=== PATIENT | male | born 1960 | race Caucasian/White ===

== ENCOUNTER 2019-08-13 02:48 | Inpatient (IN) | payer SELFPAY ==
[2019-08-13] MEDS ORDERED: Nitroglycerin 0.4 MG TAB (25 Tab Bottle) SL PRN (03:54)
[2019-08-13] MEDS ORDERED: Heparin 25,000 units/D5W 500 ML IVPB SCH (04:00)
[2019-08-13] MEDS ORDERED: Heparin 10,000 UNITS/ 10 ML VIAL SLOW IVP SCH (04:00)
[2019-08-13] MEDS ORDERED: Morphine 2 MG/ML SYRINGE SLOW IVP PRN (04:16)
--- NOTE | 2019-08-13 04:55 | HP ---
CHIEF COMPLAINT: Chest pain. HISTORY OF PRESENT ILLNESS: Mr. Rasmussen is a 58-year-old male with a past medical history of GERD, presents to [facility] with chest pain that has been going on and off for the past 2 weeks. Last evening, the patient had the pain severe enough to tell his , and she gave him nitroglycerin and aspirin. He reports dizziness and weakness for the past 3 weeks, including episodes where he thought he might pass out. On workup in the emergency room, the patient had an elevated troponin, more than 1. The patient was bradycardic with heart rate in the 40s. The patient transferred to this facility for further management and Cardiology consultation. In the emergency room, the patient received aspirin and Lovenox 1 mg/kg. PAST MEDICAL HISTORY: GERD. PAST SURGICAL HISTORY: No surgical history. SOCIAL HISTORY: He currently smokes about a pack a day. FAMILY HISTORY: Father had a heart attack in his 50s. ALLERGIES: NO KNOWN ALLERGIES. HOME MEDICATIONS: Please see home medication reconciliation form for updated medications. REVIEW OF SYSTEMS: A review of 14 systems is negative, except what is mentioned in the history of present illness. PHYSICAL EXAMINATION: VITAL SIGNS: Blood pressure is 106/66, pulse is 48, respiratory rate is 14, and temperature is 97.5. HEAD AND NECK: Normocephalic and atraumatic. Neck is supple. No JVD. CHEST: Fair bilateral air entry. HEART: S1 and S2. Regular. ABDOMEN: Soft and nontender. Bowel sounds are present. NEUROLOGIC: Awake, alert, and oriented x3. PSYCHIATRIC: Normal mood. EXTREMITIES: No clubbing or cyanosis. GENITOURINARY: No suprapubic tenderness. No flank tenderness. LABORATORIES: WBC 8.0, hemoglobin 13.9, and platelets 216. Sodium 140, potassium 3.3, BUN 13, and creatinine 1.1. Troponin is 1.13. ASSESSMENT: 1. [id number] myocardial infarction. 2. Hypokalemia. 3. Family history of coronary artery disease. 4. Cigarette smoker. PLAN: 1. Admit. 2. Telemetry monitoring. 3. Serial troponins. 4. The patient was given Lovenox in the ED 1 mg/kg, further anticoagulation as per Cardiology. 5. Keep the patient n.p.o. for now. 6. Consult Cardiology in the a.m. for evaluation and further recommendations. 7. Reconcile home medications. 8. DVT prophylaxis as appropriate. 9. Expected length of stay is 2 midnights or more. Job ID: [id number]
[2019-08-13 05:00] LABS: Hemoglobin 13.7 g/dL (14.0-18.0); Platelet Count 209 thou/uL (130-400)
[2019-08-13 05:27] LABS: Troponin I 3.713 ng/mL (< 0.028)
[2019-08-13 06:41] VITALS: BMI 31.3
[2019-08-13 07:54] LABS: Troponin I 7.481 ng/mL (< 0.028)
[2019-08-13] MEDS ORDERED: Atropine Sulfate 1 mg/1 ml Vial IVP PRN (07:58)
[2019-08-13] MEDS ORDERED: Sodium Chloride 0.9% 500 ML IV SCH (08:00)
[2019-08-13] MEDS ORDERED: Sodium Chloride 0.9% 1,000 ML IV SCH ×2 (08:00→13:15)
[2019-08-13 08:55] LABS: Hemoglobin A1c 5.6 % (4.0-6.0)
[2019-08-13] MEDS ORDERED: Enoxaparin Sodium 80 MG/0.8 ML SYRINGE SC SCH (09:00)
[2019-08-13] MEDS ORDERED: Aspirin 325 mg Enteric Coated Tablet PO SCH (09:00)
[2019-08-13] MEDS ORDERED: Fentanyl 100 MCG/2 ML VIAL ONE (09:01)
[2019-08-13] MEDS ORDERED: Midazolam HCl 2 mg/2 ml Vial ONE (09:02)
[2019-08-13 09:09] LABS: Anion Gap 11 mmol/L (10-20); BUN (Urea Nitrogen) 13 mg/dL (8.4-25.7); Calc. Creatinine Clearance 126 mL/min (70-130); Calcium 8.8 mg/dL (7.8-10.44); Carbon Dioxide 23 mmol/L (22-29); Cardiac Risk 5.1 (Less than 4.5); Chloride 109 mmol/L (98-107); Cholesterol 190 mg/dl (< 200 Desired); Estimated GFR-MDRD 85; Glucose 113 mg/dL (70-105); HDL Cholesterol 37 mg/dL (>60 Neg Risk); LDL Cholesterol, Calculated 126 mg/dL; Magnesium 2.1 mg/dL (1.6-2.6); Potassium 3.6 mmol/L (3.5-5.1); Sodium 139 mmol/L (136-145); Triglycerides 134 mg/dL (Less than 150)
[2019-08-13] MEDS ORDERED: Clopidogrel Bisulfate 300 MG TAB ONE (09:12)
[2019-08-13] MEDS ORDERED: Enoxaparin Sodium 30 MG/0.3 ML SYRINGE ONE (09:13)
[2019-08-13] MEDS ORDERED: Nitroglycerin 100MG/250ML BOT 250 ML ONE (09:14)
[2019-08-13] MEDS ORDERED: Adenosine 6 MG/2 ML VIAL ONE (09:14)
[2019-08-13] MEDS ORDERED: Verapamil 5 MG/2 ML VIAL ONE (09:14)
[2019-08-13] MEDS ORDERED: Nitroglycerin 50 MG/250 ML BOT 250 ML ONE (09:38)
[2019-08-13] MEDS ORDERED: Iopamidol 370 76% 100 ML VIAL ONE (09:57)
[2019-08-13] MEDS ORDERED: Iopamidol 370 76% 50 ML VIAL FS ONE (09:57)
[2019-08-13] MEDS ORDERED: Morphine 2 MG/ML SYRINGE ONE (11:48)
--- NOTE | 2019-08-13 13:50 | CON ---
DATE OF CONSULTATION: 08/13/2019 REASON FOR CONSULTATION: [id number] WA. HISTORY OF PRESENT ILLNESS: Mr. Rasmussen is a 58-year-old gentleman, who recently presented with acute onset chest pain. It began at 1:30 in the morning. He presented to the emergency room with the above. He was given one dose of Lovenox. He was placed on telemetry monitoring. I was called at 8 o'clock this morning, because the patient continued to have pain with elevated troponin of 7.0. The patient does have a previous history of tobacco abuse. PAST MEDICAL HISTORY: Acid reflux. SOCIAL HISTORY: As above. He is currently . FAMILY HISTORY: Positive for WA. ALLERGIES: NONE. MEDICATIONS: None. REVIEW OF SYSTEMS: A 10-point review of systems is reviewed and is as above, otherwise negative. PHYSICAL EXAMINATION: GENERAL: Patient is a pleasant male who is in no acute distress. The patient appears their stated age. VITAL SIGNS: Blood pressure 110/70, pulse 80, respirations 20. NEUROLOGIC: The patient is alert and oriented x3 with no focal neurologic deficits. HEENT: Sclerae without icterus. Mouth has moist mucous membranes with normal pallor. NECK: No JVD. Carotid upstroke brisk. No bruits bilaterally. LUNGS: Clear to auscultation with unlabored respirations. BACK: No scoliosis or kyphosis. CARDIAC: Regular rate and rhythm with normal S1 and S2. No S3 or S4 noted. No significant rubs, murmurs, thrills, or gallops noted throughout the precordium. PMI is not displaced. There is no parasternal heave. ABDOMEN: Soft, nontender, nondistended. No peritoneal signs present. No hepatosplenomegaly. No abnormal striae. EXTREMITIES: 2+ femoral and 2+ dorsalis pedis pulses. No cyanosis, clubbing, or edema. SKIN: No gross abnormalities. PERTINENT LABORATORY DATA: Hemoglobin 13.7. Creatinine 0.91. Troponin 7.48. BNP of 114. EKG, normal sinus rhythm with Q-waves noted inferiorly. IMPRESSION: 1. Elevated troponin. 2. Unstable angina. 3. Tobacco abuse. RECOMMENDATIONS: Given Mr. Mchughs troponin is positive with continued pain and episodes of bradycardia with a 4-second pause, I am concerned about stenosis or occlusion of the right coronary artery. Given continued pain, I would recommend urgent coronary angiography plus PCI. I discussed the procedure in full detail with Mr. Rasmussen. The risks of the procedure were also discussed. The risks of the procedure include but are not limited to the following: , stroke, [place], need for emergency surgery, loss of limb, bleeding, and infection, as well as a reaction to the dye causing kidney failure and needing long-term dialysis. I also discussed the risks of PCI to include all of the above including coronary dissection and perforation in addition to acute stent thrombosis and restenosis. All questions about the procedure were answered. Given the above, the patient agreed to proceed with coronary angiography and possible PCI. Also I discussed drug-coated versus nondrug-coated stent placement. There were no complications proceed if needed. Further recommendations pending the above. Job ID: [id number]
[2019-08-13] MEDS ORDERED: Nitroglycerin 50 MG/250 ML BOT 250 ML IVPB SCH (15:15)
--- NOTE | 2019-08-13 17:40 | EKG ---
Test Reason : C/O CHEST PAIN Blood Pressure : / mmHG Vent. Rate : 040 BPM Atrial Rate : 040 BPM P-R Int : 210 ms QRS Dur : 088 ms QT Int : 522 ms P-R-T Axes : 066 060 165 degrees QTc Int : 425 ms Marked sinus bradycardia with marked sinus arrhythmia with 1st degree A-V block Possible Inferior infarct (cited on or before 13-AUG-2019) Abnormal ECG When compared with ECG of 13-AUG-2019 02:58, (Unconfirmed) No significant change was found Confirmed by DR. Shiraz RASCON (3) on 08/13/2019 5:39:58 PM Referred By: LEE Confirmed By:DR. Shiraz RASCON
--- NOTE | 2019-08-13 17:42 | EKG ---
Test Reason : POST STENT-RCA Blood Pressure : / mmHG Vent. Rate : 050 BPM Atrial Rate : 051 BPM P-R Int : 000 ms QRS Dur : 158 ms QT Int : 584 ms P-R-T Axes : 000 088 -67 degrees QTc Int : 532 ms Electronic ventricular pacemaker When compared with ECG of 13-AUG-2019 08:17, (Unconfirmed) Electronic ventricular pacemaker has replaced Sinus rhythm Confirmed by DR. Shiraz RASCON (3) on 08/13/2019 5:41:37 PM Referred By: SHIRAZ Confirmed By:DR. Shiraz RASCON
[2019-08-13] MEDS: Atorvastatin Calcium 40 MG TAB PO SCH (20:23)
[2019-08-14 03:48] LABS: #Basophils 0.1 thou/uL (0.0-0.2); #Eosinphils 0.1 thou/uL (0.0-0.7); #Lymphocytes 2.3 thou/uL (1.20-3.40); #Monocytes 0.8 thou/uL (0.11-0.59); #Neutrophils 4.9 thou/uL (1.40-6.50); %Basophils 0.9 % (0.0-1.0); %Eosinophils 1.1 % (0.0-10.0); %Lymphocytes 28.2 % (21.0-51.0); %Monocytes 9.7 % (0.0-10.0); %Neutrophils 60.1 % (42.0-75.0); Hemoglobin 13.1 g/dL (14.0-18.0); Mean Corpuscular HGB CONC 32.8 g/dL (32.0-36.0); Mean Corpuscular Hemoglobin 31.7 pg (27.0-31.0); Mean Corpuscular Volume 96.6 fL (78.0-98.0); Mean Platelet Volume 8.7 fL (7.4-10.4); Platelet Count 170 thou/uL (130-400); RBC Distribution Width 12.8 % (11.5-14.5); Red Blood Cell (RBC) Count 4.13 mill/uL (4.70-6.10); White Blood Cell (WBC) Count 8.1 thou/uL (4.8-10.8)
[2019-08-14 04:06] LABS: ALT (SGPT) 32 U/L (8-55); AST (SGOT) 107 U/L (5-34); Albumin 3.4 g/dL (3.5-5.0); Alkaline Phosphatase 65 U/L (40-110); Anion Gap 10 mmol/L (10-20); BUN (Urea Nitrogen) 11 mg/dL (8.4-25.7); Bilirubin, Total 0.7 mg/dL (0.2-1.2); Calc. Creatinine Clearance 141 mL/min (70-130); Calcium 8.3 mg/dL (7.8-10.44); Carbon Dioxide 21 mmol/L (22-29); Chloride 110 mmol/L (98-107); Estimated GFR-MDRD Greater than 90; Globulin 2.3 g/dL (2.4-3.5); Glucose 104 mg/dL (70-105); Magnesium 1.9 mg/dL (1.6-2.6); Potassium 3.4 mmol/L (3.5-5.1); Protein, Total 5.7 g/dL (6.0-8.3); Sodium 138 mmol/L (136-145)
[2019-08-14] MEDS: Clopidogrel Bisulfate 75 MG TAB PO SCH (08:48)
[2019-08-14] MEDS: Aspirin Chewable 81 MG TAB PO SCH (08:48)
[2019-08-14] MEDS: Potassium Chloride 20 MEQ TAB PO SCH ×2 (08:48→16:51)
--- NOTE | 2019-08-14 09:57 | CON ---
DATE OF CONSULTATION: HISTORY OF PRESENT ILLNESS: A 58-year-old gentleman who is status post emergency cardiac cath with intervention. Please review the copy coordinator's note. The patient is a pack-a-day smoker for 30 years without prior history of TB, pneumonia, or bronchial asthma. In fact, he tells me this is the first time in the hospital. He is bradycardic. Emergency cardiac cath revealed occlusion of his RCA. He had a stent placed. Most days, he has no issues, no shortness of breath, coughing, or wheezing. PAST MEDICAL HISTORY: High cholesterol. PREVIOUS SURGERIES: None. CARDIAC MEDICATION: Prilosec. SOCIAL HISTORY: Alcohol, none. Tobacco, pack a day. Social history otherwise unremarkable. FAMILY HISTORY: Unremarkable. REVIEW OF SYSTEMS: Ten-point negative. He may snore. PHYSICAL EXAMINATION: VITAL SIGNS: His ICU pulse is 63. He has a temporary pacemaker. Blood pressure 125/60, respiratory rate 18, pulse 80, afebrile. GENERAL: No distress. CHEST: Decreased breath sounds. No wheezing. CARDIAC: Normal S1 and S2. ABDOMEN: No masses. DIAGNOSTIC STUDIES: Chest x-ray is normal. Thyroid function is normal. BNP is normal. H and H are stable. Lytes are normal. IMPRESSION: Acute coronary syndrome, emergency cardiac cath, significant bradycardia with a temporary pacemaker. Continue supportive care. We will follow while in the ICU. He was advised to refrain from smoking. Consultation note, 70 minutes, 50% direct patient care. Job ID: [id number]
--- NOTE | 2019-08-14 13:36 | PRG ---
DATE OF SERVICE: 08/14/2019 SUBJECTIVE: Mr. Rasmussen is doing much better. No current complaints. No chest pain or pressure noted. The temporary pacemaker is stable. He is no longer pacer dependent as he was yesterday morning and afternoon. OBJECTIVE: VITAL SIGNS: Blood pressure 120/76, pulse 64, temperature afebrile. LUNGS: Clear to auscultation. HEART: Regular rate and rhythm. ABDOMEN: Soft, nontender, and nondistended. EXTREMITIES: No edema. IMPRESSION: 1. Acute myocardial infarction. 2. Bradycardia secondary to recent myocardial infarction. 3. Tobacco abuse. RECOMMENDATIONS: 1. Mr. Rasmussen is currently doing well. We will turn off pacemaker for now and discontinue this p.m. if stable. 2. 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 3. Hold beta-favian therapy given recent bradycardia. 4. Continue aspirin and atorvastatin in addition to Plavix and pantoprazole. 5. Plan is to keep in the ICU overnight and transfer to a regular room tomorrow if stable. Job ID: [id number]
--- NOTE | 2019-08-14 14:04 | EKG ---
Test Reason : Blood Pressure : / mmHG Vent. Rate : 052 BPM Atrial Rate : 052 BPM P-R Int : 166 ms QRS Dur : 088 ms QT Int : 474 ms P-R-T Axes : 070 051 -70 degrees QTc Int : 440 ms Sinus bradycardia Inferior infarct , age undetermined Abnormal ECG When compared with ECG of 13-AUG-2019 10:43, Sinus rhythm has replaced Electronic ventricular pacemaker Confirmed by DR. Shiraz RASCON (3) on 08/14/2019 2:03:44 PM Referred By: SHIRAZ Confirmed By:DR. Shiraz RASCON
--- NOTE | 2019-08-14 18:00 | PDOC.HOSPP ---
- Subjective Encounter Date: 08/14/19 Encounter Time: 09:30 Subjective: Patient seen and examined for NSTEMI. No CP. On NTG drip. No new complaints. No overnight events - Objective Vital Signs & Weight: Vital Signs (12 hours) Temp Pulse Resp BP Pulse Ox 08/14/19 16:00 67 22 H 153/82 H 08/14/19 12:00 62 19 142/75 H 08/14/19 08:00 98.2 F 08/14/19 07:58 97 Weight Weight 224 lb 6.4 oz Most Recent Monitor Data Heart Rate from ECG 60 NIBP 142/83 NIBP BP-Mean 102 Respiration from ECG 16 SpO2 98 I&O: 08/13/19 08/14/19 08/15/19 06:59 06:59 06:59 Intake Total 2240.7 513.2 Output Total 1375 1145 Balance 865.7 -631.8 Result Diagrams: 08/14/19 03:05 08/14/19 03:05 EKG Reviewed by me: Yes (Tele SR) Hospitalist ROS - Review of Systems Respiratory: denies: cough, dry, shortness of breath, hemoptysis, SOB with excertion, pleuritic pain, sputum, wheezing, other Cardiovascular: denies: chest pain, palpitations, orthopnea, paroxysmal noc. dyspnea, edema, light headedness, other - Medication Medications: Active Medications Generic Name Dose Route Start Last Admin Trade Name Freq PRN Reason Stop Dose Admin Aspirin 81 mg 08/14/19 09:00 08/14/19 08:48 Aspirin Chewable PO 81 mg DAILY DONALD Administration Atorvastatin Calcium 80 mg 08/13/19 21:00 08/13/19 20:23 Lipitor PO 80 mg HS DONALD Administration Clopidogrel Bisulfate 75 mg 08/14/19 09:00 08/14/19 08:48 Plavix PO 75 mg DAILY DONALD Administration Morphine Sulfate 2 mg 08/13/19 04:16 08/13/19 15:33 Morphine SLOW IVP 2 mg Q4H PRN Administration Moderate to Severe Pain (6-10) Pantoprazole Sodium 40 mg 08/13/19 21:00 08/13/19 20:23 Protonix PO 40 mg HS DONALD Administration Sodium Chloride 10 ml 08/13/19 09:00 08/14/19 09:11 Flush - Normal Saline IVF 10 ml Q12HR DONALD Administration - Exam General Appearance: NAD Neck: supple, no JVD Heart: RRR, no gallops, no rubs, normal peripheral pulses Respiratory: CTAB, no wheezes, no rales, no ronchi Gastrointestinal: soft, non-tender, non-distended, normal bowel sounds, no guarding, no rigidity Extremities: no cyanosis, no clubbing, no edema Neurological: no new deficit Psychiatric: normal affect, A&O x 3 Hosp A/P - Plan DVT proph w/SCDs NSTEMI s/p RCA stent Bradycardia with sinus pauses due to above Tob dep Obesity BMI 31.3 GERD PLAN: Cont ASA/Plavix Cont NTG drip Temporary pacer turned off Counselled to quit smoking AM labs No Betablockers due to bradycardia
[2019-08-14] MEDS: Atorvastatin Calcium 40 MG TAB PO SCH (21:02)
[2019-08-15 03:45] LABS: #Eosinphils 0.1 thou/uL (0.0-0.7); #Lymphocytes 2.3 thou/uL (1.20-3.40); #Monocytes 0.8 thou/uL (0.11-0.59); #Neutrophils 5.6 thou/uL (1.40-6.50); %Basophils 0.4 % (0.0-1.0); %Eosinophils 1.7 % (0.0-10.0); %Lymphocytes 25.7 % (21.0-51.0); %Monocytes 9.3 % (0.0-10.0); Mean Corpuscular Hemoglobin 32.5 pg (27.0-31.0); Mean Corpuscular Volume 95.6 fL (78.0-98.0); Mean Platelet Volume 8.6 fL (7.4-10.4); Platelet Count 188 thou/uL (130-400); RBC Distribution Width 12.4 % (11.5-14.5); White Blood Cell (WBC) Count 8.9 thou/uL (4.8-10.8)
[2019-08-15 04:06] LABS: Anion Gap 10 mmol/L (10-20); BUN (Urea Nitrogen) 9 mg/dL (8.4-25.7); Calc. Creatinine Clearance 138 mL/min (70-130); Calcium 8.7 mg/dL (7.8-10.44); Carbon Dioxide 25 mmol/L (22-29); Chloride 108 mmol/L (98-107); Estimated GFR-MDRD Greater than 90; Glucose 96 mg/dL (70-105); Potassium 3.7 mmol/L (3.5-5.1); Sodium 139 mmol/L (136-145)
[2019-08-15] MEDS: Aspirin Chewable 81 MG TAB PO SCH (08:02)
[2019-08-15] MEDS: Clopidogrel Bisulfate 75 MG TAB PO SCH (08:02)
[2019-08-15] MEDS ORDERED: Potassium Chloride 20 MEQ TAB PO SCH (08:45)
--- NOTE | 2019-08-15 15:36 | PRG ---
DATE OF SERVICE: 08/15/2019 SUBJECTIVE: Mr. Rasmussen is doing very well. His heart rate is stable overnight after removing the temporary pacemaker. No current complaints. OBJECTIVE: VITAL SIGNS: Blood pressure 127/81, pulse temperature 97.8. LUNGS: Clear to auscultation. HEART: Regular rate and rhythm. ABDOMEN: Soft, nontender, nondistended. EXTREMITIES: No edema. PERTINENT LABORATORY DATA: Hemoglobin 14. IMPRESSION: 1. Non-Q-wave myocardial infarction. 2. Occluded right coronary artery. 3. Tobacco abuse. RECOMMENDATIONS: 1. Continue aspirin 81 q.a.m. 2. Continue atorvastatin 80 at bedtime. 3. Continue Plavix 75 daily. 4. Avoid beta-favian therapy until the outpatient setting due to recent bradycardia. 5. Cessation of all tobacco products. 6. Okay from my standpoint to discharge home in a.m. The patient is from the [place], [place] area, and recommend he follow up with a sheet heater in the region. Job ID: [id number]
--- NOTE | 2019-08-15 19:30 | PDOC.HOSPP ---
- Subjective Encounter Date: 08/15/19 Encounter Time: 17:00 Subjective: Patient seen and examined for NSTEMI. No new CP/Palpitations. No new complaints. No overnight events - Objective Vital Signs & Weight: Vital Signs (12 hours) Temp Pulse Pulse Pulse Resp BP BP 08/15/19 15:12 97.9 F 62 16 08/15/19 11:11 08/15/19 11:00 97.8 F 52 L 16 08/15/19 08:52 64 76 135/71 128/75 08/15/19 08:00 98.1 F 08/15/19 07:52 BP Pulse Ox Pulse Ox Pulse Ox 08/15/19 15:12 147/71 H 98 08/15/19 11:11 97 08/15/19 11:00 127/81 97 08/15/19 08:52 98 100 08/15/19 08:00 08/15/19 07:52 93 L Weight Weight 224 lb 6.4 oz Most Recent Monitor Data Heart Rate from ECG 52 NIBP 111/59 NIBP BP-Mean 76 Respiration from ECG 16 SpO2 96 I&O: 08/14/19 08/15/19 08/16/19 06:59 06:59 06:59 Intake Total 2240.7 613.2 1220 Output Total 1375 3720 1250 Balance 865.7 -3106.8 -30 Result Diagrams: 08/15/19 03:17 08/16/19 07:09 EKG Reviewed by me: Yes (Tele SB) Hospitalist ROS - Review of Systems Respiratory: denies: cough, dry, shortness of breath, hemoptysis, SOB with excertion, pleuritic pain, sputum, wheezing, other Cardiovascular: denies: chest pain, palpitations, orthopnea, paroxysmal noc. dyspnea, edema, light headedness, other - Medication Medications: Active Medications Generic Name Dose Route Start Last Admin Trade Name Freq PRN Reason Stop Dose Admin Aspirin 81 mg 08/14/19 09:00 08/15/19 08:02 Aspirin Chewable PO 81 mg DAILY DONALD Administration Atorvastatin Calcium 80 mg 08/13/19 21:00 08/14/19 21:02 Lipitor PO 80 mg HS DONALD Administration Clopidogrel Bisulfate 75 mg 08/14/19 09:00 08/15/19 08:02 Plavix PO 75 mg DAILY DONALD Administration Morphine Sulfate 2 mg 08/13/19 04:16 08/13/19 15:33 Morphine SLOW IVP 2 mg Q4H PRN Administration Moderate to Severe Pain (6-10) Pantoprazole Sodium 40 mg 08/13/19 21:00 08/14/19 21:03 Protonix PO 40 mg HS DONALD Administration Sodium Chloride 10 ml 08/13/19 09:00 08/15/19 08:03 Flush - Normal Saline IVF 10 ml Q12HR DONALD Administration - Exam General Appearance: NAD Heart: RRR, no gallops Respiratory: no wheezes, no ronchi Gastrointestinal: non-tender, non-distended Extremities: no cyanosis Neurological: no new deficit Hosp A/P - Plan DVT proph w/SCDs NSTEMI s/p RCA stent Bradycardia with sinus pauses due to above Tob dep Obesity BMI 31.3 GERD PLAN: Cont ASA/Plavix Cont Statins Counselled to quit smoking Transferred to Tele No Betablockers due to bradycardia
[2019-08-15] MEDS: Atorvastatin Calcium 40 MG TAB PO SCH (20:51)
[2019-08-15 23:43] LABS: Anion Gap 12 mmol/L (10-20); BUN (Urea Nitrogen) 12 mg/dL (8.4-25.7); Calc. Creatinine Clearance 132 mL/min (70-130); Calcium 9.2 mg/dL (7.8-10.44); Carbon Dioxide 24 mmol/L (22-29); Chloride 108 mmol/L (98-107); Estimated GFR-MDRD 90; Glucose 90 mg/dL (70-105); Magnesium 2.1 mg/dL (1.6-2.6); Potassium 3.8 mmol/L (3.5-5.1); Sodium 140 mmol/L (136-145)
[2019-08-16 07:37] LABS: Anion Gap 13 mmol/L (10-20); BUN (Urea Nitrogen) 12 mg/dL (8.4-25.7); Calc. Creatinine Clearance 132 mL/min (70-130); Calcium 9.3 mg/dL (7.8-10.44); Carbon Dioxide 24 mmol/L (22-29); Chloride 107 mmol/L (98-107); Estimated GFR-MDRD Greater than 90; Glucose 86 mg/dL (70-105); Potassium 4.1 mmol/L (3.5-5.1); Sodium 140 mmol/L (136-145)
[2019-08-16] MEDS ORDERED: Potassium Chloride 20 MEQ TAB PO SCH (08:00)
[2019-08-16] MEDS: Clopidogrel Bisulfate 75 MG TAB PO SCH (08:07)
[2019-08-16] MEDS: Aspirin Chewable 81 MG TAB PO SCH (08:07)
--- NOTE | 2019-08-16 13:56 | CON ---
DATE OF CONSULTATION: 08/16/2019 SUBJECTIVE: Mr. Rasmussen is doing well. No current complaints. He did have episode of nonsustained VT overnight. He was asymptomatic. Overall, LVEF estimated at 45%. There is hypokinesis along the inferoseptal region. OBJECTIVE: VITAL SIGNS: Blood pressure 119/64, pulse 83, and temperature is afebrile. LUNGS: Clear to auscultation. HEART: Regular rate and rhythm. ABDOMEN: Soft, nontender, and nondistended. EXTREMITIES: No edema. IMPRESSION: 1. Non-Q-wave myocardial infarction. 2. Nonsustained ventricular tachycardia. 3. Bradycardia. RECOMMENDATIONS: Mr. Rasmussen is less than 3 days out from his recent CA. He did have 6 beats of nonsustained VT. His LVEF is 45%. Indication will be for beta favian therapy, although not recommended given bradycardia. We will have EP consult to visit with Mr. Rasmussen. We would likely recommend he stay overnight to further assess his rhythm. If he is stable over the next 24 hours, will be okay to discharge home with close outpatient followup. Job ID: [id number]
--- NOTE | 2019-08-16 19:45 | PDOC.HOSPP ---
- Subjective Encounter Date: 08/16/19 Encounter Time: 09:00 Subjective: Patient seen and examined for NSTEMI. No new CP. No new complaints. No overnight events - Objective Vital Signs & Weight: Vital Signs (12 hours) Temp Pulse Pulse Pulse Resp BP BP 08/16/19 16:25 97.5 F L 50 L 20 08/16/19 12:25 97.5 F L 80 20 08/16/19 09:10 53 L 58 L 129/75 119/64 BP Pulse Ox Pulse Ox Pulse Ox 08/16/19 16:25 118/67 94 L 08/16/19 12:25 137/72 95 08/16/19 09:10 97 97 Weight Weight 214 lb 6.4 oz Most Recent Monitor Data Heart Rate from ECG 52 NIBP 111/59 NIBP BP-Mean 76 Respiration from ECG 16 SpO2 96 I&O: 08/15/19 08/16/19 08/17/19 06:59 06:59 06:59 Intake Total 613.2 3020 1440 Output Total 3720 1250 Balance -3106.8 1770 1440 Result Diagrams: 08/15/19 03:17 08/16/19 07:09 EKG Reviewed by me: Yes (Tele SR) Hospitalist ROS - Review of Systems Respiratory: denies: cough, dry, shortness of breath, hemoptysis, SOB with excertion, pleuritic pain, sputum, wheezing, other Cardiovascular: denies: chest pain, palpitations, orthopnea, paroxysmal noc. dyspnea, edema, light headedness, other - Medication Medications: Active Medications Generic Name Dose Route Start Last Admin Trade Name Freq PRN Reason Stop Dose Admin Aspirin 81 mg 08/14/19 09:00 08/16/19 08:07 Aspirin Chewable PO 81 mg DAILY DONALD Administration Atorvastatin Calcium 80 mg 08/13/19 21:00 08/15/19 20:51 Lipitor PO 80 mg HS DONALD Administration Clopidogrel Bisulfate 75 mg 08/14/19 09:00 08/16/19 08:07 Plavix PO 75 mg DAILY DONALD Administration Morphine Sulfate 2 mg 08/13/19 04:16 08/13/19 15:33 Morphine SLOW IVP 2 mg Q4H PRN Administration Moderate to Severe Pain (6-10) Pantoprazole Sodium 40 mg 08/13/19 21:00 08/15/19 20:51 Protonix PO 40 mg HS DONALD Administration Sodium Chloride 10 ml 08/13/19 09:00 08/16/19 17:58 Flush - Normal Saline IVF 10 ml Q12HR DONALD Administration - Exam General Appearance: NAD Heart: RRR, no gallops, no rubs Heart - other findings: bradycardic Respiratory: CTAB, no rales, no ronchi Gastrointestinal: soft, non-distended Extremities: no cyanosis, no edema Hosp A/P - Plan DVT proph w/SCDs NSTEMI s/p RCA stent Bradycardia with sinus pauses due to above Tob dep - counselled Obesity BMI 31.3 GERD PLAN: Cont ASA/Plavix Cont Statins Await EP input due to bradycardia No Betablockers due to bradycardia DC home once cleared by Cardiology
[2019-08-16] MEDS: Atorvastatin Calcium 40 MG TAB PO SCH (20:25)
--- NOTE | 2019-08-16 21:14 | CON ---
DATE OF CONSULTATION: 08/16/2019 REASON FOR CONSULTATION: Nonsustained ventricular tachycardia. Consultation is performed by Dr. Csear Menchaca. HISTORY OF PRESENT ILLNESS: Mr. Rasmussen is a 58-year-old gentleman who came to [facility] on the 12 of August with chest pain. This has been transient for 2 weeks proceeding his time in the hospital. He was taken to the wharf laborer by Dr. Mg. Given his chest pain, his bradycardia, there was concern for an RCA lesion. He was found to have a 100% occluded RCA. He had significant bradycardia with pauses up to 4 seconds starting even before PCI. A temporary pacemaker was placed and left in for few days after his catheterization. On the , the rates returned down and he was found to be no longer dependent on his temporary pacer and it was removed that night. On the , the patient continued to be bradycardiac as he had been with heart rates in the mid to low 50s and fairly stable and asymptomatic with these lower rates. At 10:30 at night, he had a bradycardic episode that showed an idioventricular escape rhythm followed by a brief nonsustained ventricular tachycardia run of approximately 6 beats before returning to sinus bradycardia. Other than that isolated incident, his rhythm has been fairly stable since having his temporary pacemaker removed. EP consultation was requested in light of his nonsustained ventricular tachycardia runs. Mr. Rasmussen feels well. He is no longer experiencing chest pain. He denies any heart racing, palpitations, syncope, near syncope, stroke, or stroke-like symptoms. He is unaware of his nonsustained VT episode last night and denies any passing-out episodes or dizziness, lightheadedness, weakness, or fatigue that would suggest symptomatic bradycardia. REVIEW OF SYSTEMS: 12-point review of systems is unremarkable except that listed above in HPI. PAST MEDICAL HISTORY: GERD. SOCIAL HISTORY: He is . History of prior tobacco habituation, but not recently. Denies alcohol or illicit drug use. FAMILY HISTORY: Positive for ME. ALLERGIES: NONE. MEDICATIONS: None. OBJECTIVE: MOST RECENT VITAL SIGNS: Temperature 97.5, pulse 52, blood pressure 119/64, respirations 18, oxygen 95% on room air. GENERAL: Patient is alert and oriented. Speech is clear. Affect is appropriate. He is in no apparent distress. At the time of exam, resting comfortably in bed. HEENT: Normocephalic, atraumatic. Sclerae anicteric. EOMs are intact. Oral mucosa is moist and pink with adequate dentition. NECK: Supple without jugular venous distention or lymphadenopathy. HEART: His heart rate is regularly regular, but slow with a crisp S1-S2 and PMI is nondisplaced. LUNGS: Clear to auscultation bilaterally without wheezes, crackles, or rhonchi. Respirations are even and nonlabored. ABDOMEN: Soft and nontender without palpable masses. Positive bowel sounds are noted throughout. Hepatojugular reflux is negative. EXTREMITIES: Warm and dry to touch. Well perfused without clubbing, cyanosis, or edema. NEUROLOGIC: Grossly intact and nonfocal. Gait was not assessed. LABORATORY AND DIAGNOSTIC STUDIES: Echocardiogram on 08/16/2019, EF mildly reduced at 45%. Hypokinetic motion of the inferior septal wall and LV, mild MR, mild TR, normal PAT. Laboratory: Hematology unremarkable. Chemistry all within normal ranges. Creatinine 0.83, potassium 4.1, magnesium 1.9. Telemetry and EKG shows sinus bradycardia with rates in the mid to low 50s, an episode of idioventricular escape rhythm was seen last night around 10:30 that progressed into a nonsustained ventricular tachycardia run with approximately 6 beats before returning to sinus bradycardia. IMPRESSION: 1. Asymptomatic sinus bradycardia with previously seen pauses up to 4 seconds requiring transient temporary pacemaker for approximately 36 hours following stenting of the RCA. 2. Idioventricular rhythm, progressing to a short nonsustained ventricular tachycardia and asymptomatic. 3. Mildly reduced left ventricular ejection fraction of 45% by echo on 08/15 following an acute myocardial infarction. 4. Coronary artery disease, acute myocardial infarction with PCI to the RCA for 100% occlusion on 08/13/2019. PLAN AND RECOMMENDATIONS: At this point, I suspect his ventricular arrhythmias and possibly bradycardia are still related to his recent revascularization of the RCA. There is no definite indication for pacing or ICD therapy. Unfortunately, he is unable to be given any type of beta-favian therapy for his cardiomyopathy with nonsustained VT in light of his baseline bradycardia. He is asymptomatic with his bradycardia and this may improve as he progresses further out from his PCI. For now, I would refrain from any type of device implants and recommend guideline-directed medical therapy for his cardiomyopathies. In addition, it would be treviño for him to discharge with a 30-day monitor in light of his nonsustained VT and an inability to take beta blockers to watch his rhythm status as he moves out from revascularization. Thank you for allowing me to participate in the care of this patient. Please let me know if there are any additional concerns that I may assist with. Job ID: [id number]
[2019-08-17] MEDS: Clopidogrel Bisulfate 75 MG TAB PO SCH (07:40)
[2019-08-17] MEDS: Aspirin Chewable 81 MG TAB PO SCH (07:40)
--- NOTE | 2019-08-17 13:18 | PDOC.CPN ---
- Subjective Date: 08/17/19 Time: 13:30 Interval history: The pt seen and examined. No overnight events. No cardiac complaints. - Objective Allergies/Adverse Reactions: Allergies Allergy/AdvReac Type Severity Reaction Status Date / Time No Known Drug Allergies Allergy Verified 08/13/19 06:51 Visit Medications: Current Medications Aspirin (Aspirin Chewable) 81 mg PO DAILY [facility] Last Admin: 08/17/19 07:40 Dose: 81 mg Atorvastatin Calcium (Lipitor) 80 mg PO [facility] Last Admin: 08/16/19 20:25 Dose: 80 mg Atropine Sulfate (Atropine) 0.5 mg IVP ASDIR PRN PRN Reason: Sustained Bradycardia HR < 30 Clopidogrel Bisulfate (Plavix) 75 mg PO DAILY [facility] Last Admin: 08/17/19 07:40 Dose: 75 mg Morphine Sulfate (Morphine) 2 mg SLOW IVP Q4H PRN PRN Reason: Moderate to Severe Pain (6-10) Last Admin: 08/13/19 15:33 Dose: 2 mg Nitroglycerin (Nitrostat) 0.4 mg SL Q5MIN PRN PRN Reason: Chest Pain Pantoprazole Sodium (Protonix) 40 mg PO [facility] Last Admin: 08/16/19 20:25 Dose: 40 mg Sodium Chloride (Flush - Normal Saline) 10 ml IVF Q12HR [facility] Last Admin: 08/17/19 07:40 Dose: 10 ml Sodium Chloride (Flush - Normal Saline) 10 ml IVF PRN PRN PRN Reason: Saline Flush Vital Signs & Weight: Vital Signs Temp Pulse Pulse Pulse Resp BP BP 08/17/19 09:45 08/17/19 09:13 58 L 52 L 126/67 128/67 08/17/19 07:38 97.6 F 55 L 18 08/17/19 03:37 98.2 F 50 L 18 BP Pulse Ox Pulse Ox Pulse Ox 08/17/19 09:45 95 08/17/19 09:13 98 99 08/17/19 07:38 119/70 96 08/17/19 03:37 120/76 96 Weight 215 lb - Physical Exam General: alert & oriented x3 HEENT: mucus membranes moist Neck: supple neck Cardiac: regular rate and rhythm, S1/S2 Lungs: clear to auscultation Neuro: cranial nerve 2-12 intact Extremities: no edema Skin: clear Musculoskeletal: normal range of motion - Labs Result Diagrams: 08/15/19 03:17 08/16/19 07:09 Troponin/CKMB Troponin I 7.481 ng/mL (< 0.028) H* 08/13/19 06:58 - Telemetry Sinus rhythms and dysrhythmias: sinus bradycardia (< 50 bpm) - Assessment/Plan Assessment/Plan: 1. CAD with ADARSH x1 in RCA on 08/14/2019 - On ASA and Plavix; No on BBlcoker due to bradycardia; may start SAUD/ARB with more stable VS 2. S/p 4 sec pauses prior to LHC and PTCA - HR has been upper 40s-50s; Asymptomatic; The pt will pick up and delivery driver 30-day EVR at Dr Starr's office on Monday reviewed * From Cardiac standpoint, the pt is stable to d/c home. * The pt will pick up and delivery driver 30-day EVR at Dr Starr's office on Monday * the pt will f/u with Dr Mg's office in 2 wks.
[2019-08-17 13:35] VITALS: BP 116/71; TEMP 98.3
--- NOTE | 2019-08-17 14:10 | PDOC.HOSPP ---
- Subjective Encounter Date: 08/17/19 Encounter Time: 14:08 Subjective: Mr. Rasmussen was seen today in follow-up of NSTEMI. He does not have any complaints. - Objective Vital Signs & Weight: Vital Signs (12 hours) Temp Pulse Pulse Pulse Resp BP BP 08/17/19 11:45 98.3 F 57 L 20 08/17/19 09:45 08/17/19 09:13 58 L 52 L 126/67 128/67 08/17/19 07:38 97.6 F 55 L 18 08/17/19 03:37 98.2 F 50 L 18 BP Pulse Ox Pulse Ox Pulse Ox 08/17/19 11:45 116/71 95 08/17/19 09:45 95 08/17/19 09:13 98 99 08/17/19 07:38 119/70 96 08/17/19 03:37 120/76 96 Weight Weight 215 lb Most Recent Monitor Data Heart Rate from ECG 52 NIBP 111/59 NIBP BP-Mean 76 Respiration from ECG 16 SpO2 96 I&O: 08/16/19 08/17/19 08/18/19 06:59 06:59 06:59 Intake Total 3020 2040 Output Total 1250 Balance 1770 2040 Result Diagrams: 08/15/19 03:17 08/16/19 07:09 Hospitalist ROS - Medication Medications: Active Medications Generic Name Dose Route Start Last Admin Trade Name Freq PRN Reason Stop Dose Admin Aspirin 81 mg 08/14/19 09:00 08/17/19 07:40 Aspirin Chewable PO 81 mg DAILY DONALD Administration Atorvastatin Calcium 80 mg 08/13/19 21:00 08/16/19 20:25 Lipitor PO 80 mg HS DONALD Administration Clopidogrel Bisulfate 75 mg 08/14/19 09:00 08/17/19 07:40 Plavix PO 75 mg DAILY DONALD Administration Morphine Sulfate 2 mg 08/13/19 04:16 08/13/19 15:33 Morphine SLOW IVP 2 mg Q4H PRN Administration Moderate to Severe Pain (6-10) Pantoprazole Sodium 40 mg 08/13/19 21:00 08/16/19 20:25 Protonix PO 40 mg HS DONALD Administration Sodium Chloride 10 ml 08/13/19 09:00 08/17/19 07:40 Flush - Normal Saline IVF 10 ml Q12HR DONALD Administration - Exam Eye: PERRL Heart: RRR, no murmur, no gallops, no rubs, normal peripheral pulses Respiratory: CTAB, no wheezes, no rales, no ronchi, normal chest expansion Gastrointestinal: soft, non-tender, non-distended, normal bowel sounds, no palpable masses Extremities: no cyanosis Hosp A/P (1) NSTEMI (non-ST elevated myocardial infarction) Code(s): I21.4 - NON-ST ELEVATION (NSTEMI) MYOCARDIAL INFARCTION Status: Acute (2) Bradycardia Code(s): R00.1 - BRADYCARDIA, UNSPECIFIED Status: Acute (3) Dyslipidemia Code(s): E78.5 - HYPERLIPIDEMIA, UNSPECIFIED Status: Chronic - Plan * NSTEMI- post PTCA and STENT placement to the RCA. * He is clinically stable * He can be discharge home with close outpatient follow-up.
--- NOTE | 2019-08-18 05:25 | DIS ---
DATE OF ADMISSION: 08/13/2019 DATE OF DISCHARGE: 08/17/2019 DISCHARGE DISPOSITION: Home. DISCHARGE DIAGNOSES: 1. Non-ST elevation myocardial infarction. 2. Status post stent to the right coronary artery. 3. Dyslipidemia. 4. Tobacco abuse. 5. History of gastroesophageal reflux disease. DISCHARGE MEDICATIONS: Include, 1. Plavix 75 mg daily. 2. Aspirin 81 mg daily. 3. Lipitor 80 mg at bedtime. 4. Prilosec 20 mg a day. CODE STATUS: Full code. ALLERGIES: NO KNOWN DRUG ALLERGIES. PROCEDURES DONE DURING ADMISSION: The patient had a cardiac catheterization in which the patient had a drug-eluting stent placed to the right coronary artery. The patient also had an echocardiogram, this demonstrated an ejection fraction estimated at 45%. There was some hypokinetic motion of the inferoseptal wall of the left ventricle and moderately thickened aortic valve. HOSPITAL COURSE: Mr. Rasmussen is a pleasant 58-year-old gentleman, who was admitted to the hospital after he had an episode of chest pain. This had been off and on for the past couple of weeks. He was evaluated in the ER and was noted to have an elevated troponin and his troponin peaked at 7.4. He was evaluated by Cardiology. He underwent cardiac catheterization, which demonstrated 100% occlusion of his right coronary artery. He underwent PTCA and stent placement. He developed some significant bradycardia, likely as a result of the ischemia from the RCA lesion. He was evaluated by railroad watchman, Dr. Menchaca, who recommended that he have continued monitoring and hopefully the further he gets out from the revascularization that the bradycardia would resolve. He also had some nonsustained ventricular tachycardia in the mix with the bradycardia as well, but by the time of discharge, these had significantly improved. His heart rate was up to 57, still bradycardic but much improved. He was asymptomatic and he was also counseled on the need to discontinue smoking and to follow up with his primary care physician in approximately 1 to 2 weeks. Job ID: [id number]
--- NOTE | 2019-08-19 05:03 | PQF ---
Luis Alberto Rasmussen TONI MD [id number] CLINICAL DOCUMENTATION CLARIFICATION FORM: POST DISCHARGE Addendum to original discharge summary date: ____ Late entry note date: __ DATE:08/19/2019 ATTN: Dwayne Fuller Please exercise your independent, professional judgment in responding to the clarification form. Clinical indicators are provided on the bottom of this form for your review Please check appropriate box(s): [X ] NSTEMI (ME type I) [ ] NSTEMI due to Demand Ischemia (AMI Type II) [ ] NSTEMI type II due to: (Please, specify condition) [ ] Unable to determine CLINICAL INDICATORS - SIGNS / SYMPTOMS / LABS Laboratory 08/12 BNP 114.3, Troponin I 3.713, 7.481 H&P p1 08/12 Dr Hightower Present with chest pain that has been going on and off for the past 3 weeks H&P p1 08/12 Dr Hightower he reports dizziness and weakness for the past 3 weeks, including episodes where he thought he might pass out Consult p2 08/12 Dr Mg Elevated troponin with unstable Angina Consult p1 08/13 Emergency cardiac cath revealed occlusion of his RCA Consult p2 08/13 Acute coronary syndrome, emergency cardiac cath, significant bradycardia Discharge summary p1 08/16 He develop some significant bradycardia likely as a result of ischemia from the RCA lesion RISKS: ED notes p1 08/12 High Cholesterol H&P p1 08/12 Smokes about a pack a day H&P p1 08/12 GERD H&P p2 08/12 Hypokalemia H&P p2 08/12 Family hx of CAD PN p4 08/13 Obesity Consult p1 08/15 NSVT Cariod PN p3 08/16 - CAD Discharge summary p1 08/16 - HLD TREATMENTS: JUN 25 IV Nitroglycerin 50 mg JUN 25 Lipitor 80mg oral JUN 25 IVF NS 1L JUN 25 Aspirin Chewable 81 mg JUN 25 Plavix 300 mg oral Cardiac Cath LHC with ADARSH and Mechanical Thrombectomy Cardiac Cath Temporary pacemaker Cardiology Consult 08/12 Noel Sarmiento H&P p2 08/12 Serial troponin Collected 08/12 - Electrocardiogram (This form is maintained as a part of the permanent medical record) 2014 [employer]. All Rights Reserved [email or web address]
--- NOTE | 2019-08-21 14:50 | EKG ---
Test Reason : Blood Pressure : / mmHG Vent. Rate : 049 BPM Atrial Rate : 049 BPM P-R Int : 240 ms QRS Dur : 090 ms QT Int : 462 ms P-R-T Axes : 048 046 230 degrees QTc Int : 417 ms Marked sinus bradycardia with marked sinus arrhythmia with 1st degree A-V block Possible Inferior infarct , age undetermined No STEMI Abnormal ECG Confirmed by MANUEL LY M.D. ([id number]), editor magazine MARI GARCIA ([id number]) on 08/21/2019 2:50:12 PM Referred By: Confirmed By:MANUEL LY M.D.
== END 2019-08-17 15:55 | disposition home or self-care (01) | DRG 247 ==
LOC: ERS 02:48 → 2NO 05:18 → CCU 13:24 → 2NO 08-15 10:50
PROVIDERS: ADMIT Internal Medicine; ATTEND Internal Medicine
PROC: 027034Z Dilation of Coronary Artery, One Artery with Drug-eluting Intraluminal Device, Percutaneous Approach (ICD-10-PCS; principal; 2019-08-13)
PROC: 02C03ZZ Extirpation of Matter from Coronary Artery, One Artery, Percutaneous Approach (ICD-10-PCS; 2019-08-13)
PROC: 4A023N7 Measurement of Cardiac Sampling and Pressure, Left Heart, Percutaneous Approach (ICD-10-PCS; 2019-08-13)
PROC: B2111ZZ Fluoroscopy of Multiple Coronary Arteries using Low Osmolar Contrast (ICD-10-PCS; 2019-08-13)
PROC: 5A1223Z Performance of Cardiac Pacing, Continuous (ICD-10-PCS; 2019-08-13)
DX: I21.4 Non-ST elevation (NSTEMI) myocardial infarction (principal); I47.2 Ventricular tachycardia; I42.9 Cardiomyopathy, unspecified; E78.5 Hyperlipidemia, unspecified; K21.9 Gastro-esophageal reflux disease without esophagitis; R00.1 Bradycardia, unspecified; I25.10 Atherosclerotic heart disease of native coronary artery without angina pectoris; E78.00 Pure hypercholesterolemia, unspecified; F17.210 Nicotine dependence, cigarettes, uncomplicated; E87.6 Hypokalemia; E66.9 Obesity, unspecified; Z68.31 Body mass index [BMI] 31.0-31.9, adult
CPT/HCPCS: 33210; 36415; 76942; 80048; 80053; 80061; 83036; 83735; 83880; 84439; 84443; 85025; 85730; 92928; 92973; 93005; 93010; 93306; 93454; 93798; 94760; 99152; 99153; 99285; C1725; C1757; C1769; C1874; C1887; C9600; J0153; J1644; J1650; J2250; J2270; J3010; Q9967

== ENCOUNTER 2019-09-03 11:31 | Inpatient (IN) | payer SELFPAY ==
[2019-09-03] MEDS ORDERED: Atropine Sulfate 1 mg/10 ml Syringe ONE (11:36)
[2019-09-03 11:53] LABS: #Basophils 0.1 thou/uL (0.0-0.2); #Eosinphils 0.4 thou/uL (0.0-0.7); #Lymphocytes 2.2 thou/uL (1.20-3.40); #Monocytes 0.8 thou/uL (0.11-0.59); #Neutrophils 4.2 thou/uL (1.40-6.50); %Basophils 0.9 % (0.0-1.0); %Eosinophils 5.7 % (0.0-10.0); %Lymphocytes 28.9 % (21.0-51.0); %Monocytes 10.4 % (0.0-10.0); %Neutrophils 54.1 % (42.0-75.0); Hemoglobin 15.4 g/dL (14.0-18.0); Mean Corpuscular HGB CONC 33.6 g/dL (32.0-36.0); Mean Corpuscular Hemoglobin 32.3 pg (27.0-31.0); Mean Corpuscular Volume 96.1 fL (78.0-98.0); Mean Platelet Volume 8.3 fL (7.4-10.4); Platelet Count 256 thou/uL (130-400); RBC Distribution Width 12.1 % (11.5-14.5); Red Blood Cell (RBC) Count 4.77 mill/uL (4.70-6.10); White Blood Cell (WBC) Count 7.7 thou/uL (4.8-10.8)
[2019-09-03 12:02] LABS: PTT 30.7 SEC (22.9-36.1)
[2019-09-03 12:03] LABS: Prothrombin Time 12.9 sec (12.0-14.7)
[2019-09-03 12:14] LABS: ALT (SGPT) 22 U/L (8-55); AST (SGOT) 14 U/L (5-34); Albumin 4.1 g/dL (3.5-5.0); Alkaline Phosphatase 109 U/L (40-110); Anion Gap 13 mmol/L (10-20); BUN (Urea Nitrogen) 7 mg/dL (8.4-25.7); Bilirubin, Total 0.5 mg/dL (0.2-1.2); CK (CPK) 120 U/L (30-200); Calc. Creatinine Clearance 0 mL/min (70-130); Calcium 9.6 mg/dL (7.8-10.44); Carbon Dioxide 27 mmol/L (22-29); Chloride 107 mmol/L (98-107); Estimated GFR-MDRD 77; Globulin 2.8 g/dL (2.4-3.5); Glucose 105 mg/dL (70-105); Magnesium 2.1 mg/dL (1.6-2.6); Potassium 3.6 mmol/L (3.5-5.1); Protein, Total 6.9 g/dL (6.0-8.3); Sodium 143 mmol/L (136-145)
[2019-09-03 12:21] LABS: CKMB 2.4 ng/mL (0-6.6)
--- NOTE | 2019-09-03 14:45 | RAD ---
PORTABLE CHEST 1 VIEW: DATE: 09/03/2019. TIME: 12:04 PM. HISTORY: Dizziness, shortness of breath. COMPARISON: 08/13/2019. FINDINGS: The heart size is borderline. The lungs are expanded without lobar consolidation, pneumothoraces, fr ank pulmonary edema, or pleural effusions. IMPRESSION: No acute process. POS: DANIEL
[2019-09-03 17:38] LABS: Troponin I 0.033 ng/mL (< 0.028)
[2019-09-03] MEDS ORDERED: Acetaminophen 325 MG TAB PO PRN (18:13)
[2019-09-03] MEDS ORDERED: HYDROcodone/Acetaminophen 5/325 mg Tablet PO PRN (18:13)
[2019-09-03] MEDS ORDERED: Ondansetron ODT 4 MG TAB PO PRN (18:13)
[2019-09-03] MEDS ORDERED: Ondansetron PF 4 MG/2 ML Vial IVP PRN (18:13)
[2019-09-03] MEDS: Sodium Chloride 0.9% 1,000 ML IV SCH (19:32)
[2019-09-03 19:57] LABS: Troponin I 0.039 ng/mL (< 0.028)
--- NOTE | 2019-09-03 20:27 | HP ---
PRIMARY CARE PHYSICIAN: Out of town physician. CHIEF COMPLAINT: Feeling dizzy and lightheaded. HISTORY OF PRESENT ILLNESS: Mr. Rasmussen is a very pleasant 58-year-old gentleman, who has history of coronary artery disease. He was recently discharged from our facility after suffering a non ST-segment elevated SD with 100% occlusion of his right coronary artery. He is status post drug-eluting stent to the RCA. He also at that time had significant bradycardia and also had some wide-complex tachyarrhythmias as well. He was evaluated by test carrier and felt that since it was so soon after the SD, that they would try medical management first and re-evaluate him for the arrhythmias at a later time as this could be related to reperfusion rhythm. The patient said he went home and was feeling fine up until today. At 11 o'clock, he started feeling dizzy and lightheaded. He says he was just sitting in a chair when it happened and he also felt a little bit tired. He says he went out for a walk with his and noticed that his heart rate did not go up as expected and so they took his blood pressure and noticed that his heart rate was very slow. He says that sometimes it was as low as 30 and as a result, he felt he should come to the ER for evaluation. In the ER, he was found to be bradycardic and also had a slightly elevated troponin and is being admitted for further evaluation. The patient denies any other symptoms such as chest pain. He denies any nausea, vomiting, no diaphoresis. He does admit to feeling a little bit short of breath off and on. He denies any leg pain or leg swelling and he says he has been compliant with his medications. REVIEW OF SYSTEMS: All systems were reviewed and are negative except for that mentioned in the history of present illness. PAST MEDICAL HISTORY: Significant for chronic systolic heart failure, coronary artery disease status post stent, and gastroesophageal reflux disease, former tobacco abuse. PAST SURGICAL HISTORY: He has had the stent to the right coronary artery. ALLERGIES: NO KNOWN DRUG ALLERGIES. SOCIAL HISTORY: He is . He is a former smoker. He quit he says on August 12 when he was last in the hospital. He smoked a pack a day for 35 years prior to that. Denies any alcohol use. He has 3 children of his own and his is his surrogate decision maker. FAMILY HISTORY: Significant for coronary artery disease in both his mom and his father and his father in his 50s with this and also diabetes in both parents. CURRENT MEDICATIONS: Include: 1. Plavix 75 mg daily. 2. Aspirin 81 mg daily. 3. Prilosec 20 mg daily. 4. Lipitor 80 mg at bedtime. PHYSICAL EXAMINATION: GENERAL: He is alert and oriented. He appears to be in no acute distress. He is well developed and well nourished. VITAL SIGNS: His blood pressure was 128/78, heart rate ranged from 34 to 63, respiratory rate of 17, temperature is 98.6, and O2 saturation is 97% on room air. HEENT: Pupils are equal, round, and reactive. Extraocular muscles are intact. Sclerae are anicteric. Throat, no erythema, no exudates. NECK: No adenopathy. No bruits. LUNGS: Clear to auscultation. There is no wheezing, no rales, no rhonchi. CARDIOVASCULAR: He has a normal S1 and S2. There is no S3 or S4. No murmurs, clicks, or rubs. ABDOMEN: Soft, nontender, and nondistended. Positive for bowel sounds. No rebound. No guarding. No organomegaly. EXTREMITIES: There is no clubbing, cyanosis, no edema. NEUROLOGICAL: Grossly intact. No muscle weakness. SKIN and INTEGUMENT: No skin changes. No rash. LABORATORY DATA: White blood cell count 7.7, hemoglobin 15.4, hematocrit is 45.8, and platelet count is 257. INR is 1.0. Sodium 143, potassium 3.6, chloride is 107, CO2 is 27, BUN of 7, creatinine 0.99, glucose is 105. EKG; sinus rhythm at the time of the EKG. The rate was 65. He had some T-wave inversions in V2 and V3, as well as V4 and also in lead I, Q-waves, lead III, and aVF. This is by my reading and also frequent PVCs. Chest x-ray, there is no infiltrate or effusion. No significant airspace disease. ASSESSMENT: This is a pleasant 58-year-old gentleman, who presents with symptomatic bradycardia. This in the setting of suffering a recent non ST-elevation myocardial infarction to the right coronary artery distribution. He will be placed in observation. We will have transcutaneous pacers at the bedside. Consult Cardiology. We will hold any medications that would affect the AV node and he will be placed on deep venous thrombosis and gastrointestinal prophylaxis. We will continue aspirin and Plavix, and further recommendations to follow. Job ID: [id number]
[2019-09-03] MEDS: Famotidine 20 MG TAB PO SCH (21:03)
[2019-09-03 22:32] VITALS: BMI 32.2
[2019-09-04 04:22] LABS: #Eosinphils 0.3 thou/uL (0.0-0.7); #Lymphocytes 1.7 thou/uL (1.20-3.40); #Monocytes 0.6 thou/uL (0.11-0.59); %Basophils 0.7 % (0.0-1.0); %Eosinophils 4.6 % (0.0-10.0); %Lymphocytes 26.2 % (21.0-51.0); %Monocytes 8.8 % (0.0-10.0); %Neutrophils 59.6 % (42.0-75.0); Hemoglobin 13.9 g/dL (14.0-18.0); Mean Corpuscular HGB CONC 33.1 g/dL (32.0-36.0); Mean Corpuscular Hemoglobin 31.9 pg (27.0-31.0); Mean Corpuscular Volume 96.3 fL (78.0-98.0); Mean Platelet Volume 8.1 fL (7.4-10.4); Platelet Count 216 thou/uL (130-400); Red Blood Cell (RBC) Count 4.36 mill/uL (4.70-6.10); White Blood Cell (WBC) Count 6.6 thou/uL (4.8-10.8)
[2019-09-04 04:43] LABS: Anion Gap 11 mmol/L (10-20); BUN (Urea Nitrogen) 10 mg/dL (8.4-25.7); Calc. Creatinine Clearance 121 mL/min (70-130); Calcium 8.4 mg/dL (7.8-10.44); Carbon Dioxide 25 mmol/L (22-29); Chloride 108 mmol/L (98-107); Estimated GFR-MDRD 90; Glucose 100 mg/dL (70-105); Potassium 3.6 mmol/L (3.5-5.1); Sodium 140 mmol/L (136-145)
[2019-09-04] MEDS: Famotidine 20 MG TAB PO SCH ×2 (08:42→20:22)
--- NOTE | 2019-09-04 10:27 | PDOC.HOSPP ---
- Subjective Encounter Date: 09/04/19 Encounter Time: 09:15 Subjective: Mr Rasmussen is seen as a follow up this morning for bradycardia and dizziness. He denies dizziness this morning and states he is feeling well. EP has seen him this morning and instructed him to walk in the hallways to see if heart rate increases. He is currently NPO if they decide any procedures are necessary. - Objective Vital Signs & Weight: Vital Signs (12 hours) Temp Pulse Resp BP BP Pulse Ox 09/04/19 08:35 96.5 F L 56 L 16 138/85 96 09/04/19 06:47 97 09/04/19 03:29 97.5 F L 66 18 130/77 97 Weight Weight 205 lb 11.2 oz I&O: 09/03/19 09/04/19 09/05/19 06:59 06:59 06:59 Intake Total 790 Balance 790 Result Diagrams: 09/04/19 04:09 09/04/19 04:09 EKG Reviewed by me: Yes (SB/ SR 50-60s) Hospitalist ROS - Medication Medications: Active Medications Generic Name Dose Route Start Last Admin Trade Name Freq PRN Reason Stop Dose Admin Famotidine 20 mg 09/03/19 21:00 09/04/19 08:42 Pepcid PO 20 mg BID DONALD Administration Sodium Chloride 1,000 mls @ 50 mls/hr 09/03/19 18:13 09/03/19 19:32 Normal Saline 0.9% IV 1,000 mls .Q20H DONALD Administration - Exam General Appearance: NAD, awake alert ENT: moist mucosa Neck: supple, symmetric, no JVD, no lymphadenopathy Heart: RRR, no murmur, no gallops, no rubs Respiratory: CTAB, no wheezes, no rales, no ronchi Gastrointestinal: soft, non-tender, non-distended, normal bowel sounds Extremities: no cyanosis, no edema Psychiatric: normal affect, normal behavior Hosp A/P (1) Bradycardia Code(s): R00.1 - BRADYCARDIA, UNSPECIFIED Status: Acute (2) CAD (coronary artery disease) Code(s): I25.10 - ATHSCL HEART DISEASE OF [place] CORONARY ARTERY W/O ANG PCTRS Status: Acute (3) Dyslipidemia Code(s): E78.5 - HYPERLIPIDEMIA, UNSPECIFIED Status: Chronic (4) HTN (hypertension) Code(s): I10 - ESSENTIAL (PRIMARY) HYPERTENSION Status: Chronic - Plan Bradycardia: pt to walk in hallway today to see if heart rate rises, possible PM if it continues to stay low and he is symptomatic, EP and cardiology following CAD: continue plavix and ASA HTN: BP stable Dyslipidemia: continue Lipitor
[2019-09-04] MEDS ORDERED: Ondansetron PF 4 MG/2 ML Vial ONE (11:20)
[2019-09-04] MEDS ORDERED: PROPOFOL 200 MG/20 ML VIAL ONE (11:20)
[2019-09-04] MEDS ORDERED: Lidocaine 1% PF 5 ML VIAL ONE (11:20)
[2019-09-04] MEDS ORDERED: Gentamicin 80 MG/2 ML VIAL ONE (11:41)
[2019-09-04] MEDS ORDERED: CEFAZOLIN 1 GM VIAL ONE (11:41)
[2019-09-04] MEDS ORDERED: Midazolam HCl 2 mg/2 ml Vial ONE (11:58)
[2019-09-04] MEDS ORDERED: Propofol 500 MG/50 ML VIAL ONE ×2 (11:58→13:31)
[2019-09-04] MEDS ORDERED: Fentanyl 100 MCG/2 ML VIAL ONE (11:58)
[2019-09-04] MEDS ORDERED: EPINEPHrine 1 MG/10 ML Abboject SYRINGE ONE (13:31)
[2019-09-04] MEDS ORDERED: Ondansetron HCl/PF 4 MG/2 ML Vial IVP PRN (14:47)
[2019-09-04] MEDS ORDERED: Meperidine HCl/PF 25 MG/ML VIAL SLOW IVP PRN (14:47)
[2019-09-04] MEDS ORDERED: Promethazine HCl 25 MG/ML VIAL IM PRN (14:47)
[2019-09-04] MEDS ORDERED: HYDROmorphone 2 MG/ML VIAL SLOW IVP PRN (14:47)
[2019-09-04] MEDS ORDERED: Promethazine HCl 25 MG/ML VIAL SLOW IVP PRN (14:47)
--- NOTE | 2019-09-04 15:01 | CON ---
DATE OF CONSULTATION: 09/04/2019 This is Leela Garcia NP dictating a report for Cesar Menchaca MD. TIME SEEN: 8:00 a.m. REASON FOR CONSULTATION: Wide-complex tachycardia, bradycardia. HISTORY OF PRESENT ILLNESS: Mr. Rasmussen is a 58-year-old gentleman, recently evaluated by our service as an inpatient at [facility] at the end of July when he was admitted for chest pain and bradycardia, and was found to have 100% RCA occlusion. He was subsequently stented and required transient pacemaker support. His bradycardia has largely resolved and is asymptomatic. He did have a documented nonsustained ventricular tachycardia runs during hospitalization which was likely related to his recent coronary reperfusion. We were unable to start beta- favian therapy due to his underlying bradycardia. He was discharged with an event monitor, which recently showed wide-complex tachycardia runs. He had associated symptoms of dizziness and lightheadedness. He was directed to the ER where he was found to be bradycardic with premature ventricular complexes noted as well. His heart rate sometimes was 30 beats per minute and he does endorse symptoms of lightheadedness and dizziness with those episodes. He also reports some shortness of breath on and off. EP consultation is requested for his arrhythmia management both with symptomatic bradycardia, PVCs, and nonsustained VT runs that have been seen on an outpatient monitor he is wearing. REVIEW OF SYSTEMS: A 12-point review of systems is negative except that listed above in HPI. PAST MEDICAL HISTORY: 1. GERD. 2. Coronary artery disease with 100% occluded RCA status post stenting in 2019. 3. Ischemic cardiomyopathy with mildly reduced ejection fraction of 40% to 45%, now recovered to normal. 4. Nonsustained ventricular tachycardia. 5. Bradycardia. 6. Idioventricular bradycardic arrhythmias. ALLERGIES: NO KNOWN DRUG ALLERGIES. HOME MEDICATIONS: Include: 1. Plavix 75 mg daily. 2. Aspirin 81 mg daily. 3. Prilosec 20 mg daily. 4. Lipitor 80 mg nightly. FAMILY HISTORY: Positive for CAD with mom and dad. Father in his 50s. Both parents had diabetes as well. SOCIAL HISTORY: . Former smoker who quit in July of this year, but had a 70-hfyt-rmzz history prior to that. Denies alcohol use. Has 3 children. OBJECTIVE: VITAL SIGNS: Temperature 97.5, pulse 56, respirations 16, oxygen is 96% on room air, blood pressure 138/85, and respirations 14. GENERAL: The patient is alert and oriented. Speech is clear. Affect is appropriate. He is in no apparent distress at the time of the exam. HEENT: The patient is normocephalic and atraumatic. Sclerae anicteric. EOMs are intact. Oral mucosa is moist and pink with adequate dentition. NECK: Supple without lymphadenopathy. Trachea is midline. PULMONARY: Lungs are clear to auscultation bilaterally. Respirations even and unlabored with good bilateral excursion. CARDIOVASCULAR: Heart rate is slow and regular with crisp S1 and S2. PMI nondisplaced. No significant murmur, rub, or gallop is appreciated. GI: Abdomen is soft and nontender to touch without masses. Hepatojugular reflux is negative. EXTREMITIES: Warm and dry to touch without clubbing, cyanosis, or edema. NEUROLOGIC: Grossly intact and nonfocal. MUSCULOSKELETAL: Denies joint pain. Gait is stable without assistance. DATABASE: LABORATORY DATA: Hematology was unremarkable. Chemistry: Potassium 3.6 and creatinine 0.87. Troponin peaked at 0.04. Magnesium 2.1. CARDIOVASCULAR STUDIES: Echocardiogram on 08/16/2019 shows EF 45%. Repeat echo since admission has not been interpreted, but images were reviewed by myself and the ejection fraction appears to have normalized with no significant reduction. Telemetry and EKG showed sinus bradycardia. External event monitor reports were reviewed and it shows nonsustained wide-complex tachycardia run, suggestive of ventricular tachycardia. IMPRESSION: 1. Wide-complex tachycardia, seen on external monitor, suggestive of ventricular tachycardia, symptomatic with lightheadedness and dizziness. 2. Symptomatic bradycardia, sick sinus syndrome. 3. Recent kau-WK-[id number] myocardial infarction with reperfusion by 100% occluded right coronary artery in late 07/2019. 4. Nonischemic cardiomyopathy with recovered ejection fraction, previously 45% in the setting of a [id number]-TN-[id number] myocardial infarction. 5. Premature ventricular complexes. PLAN AND RECOMMENDATIONS: Mr. Rasmussen is a pleasant 58-year-old gentleman. I have reviewed his external monitor reports and have seen the wide-complex tachycardia run that is suggestive of ventricular tachycardia. He had been seen to have some nonsustained VT runs immediately following his stenting of the RCA last month. We are unable to place him on any beta-favian therapy due to his underlying bradycardia at that time. He was discharged on monitor in hopes that his arrhythmia issues were largely reperfusion related. Nevertheless he continues to have symptomatic bradycardia and nonsustained VT runs in addition to premature ventricular complexes. At this point, given his symptoms, I feel there is an indication for pacemaker to address his bradycardia. In light of his nonsustained VT, I would like to do an Electrophysiology study as well, and if inducible, I would recommend a dual- chamber ICD instead of a simple pacemaker alone. This was discussed with the patient at length including treatment options. The pacing support would also allow for the medical management of his PVCs with his ventricular arrhythmias with beta- favian therapy or alternate agents. We discussed the risks, benefits, and alternatives , risks with the EP study include hematoma, bleeding at the groin sites, abnormal heart rhythms, risks with ablation include pericardial effusion, tamponade, and arrhythmia recurrence, risks with pacemaker/ICD implant include pain, bleeding, bruising, infection at the implant site, pneumothorax, pericardial effusion, lead dislodgement, device malfunction, possible recalls. The patient voices understanding and is willing to proceed. He is n.p.o. and I will try to make arrangements for later today. Thank you for allowing me to participate in the care of this patient. Job ID: [id number] MTDD
[2019-09-04] MEDS: Enoxaparin Sodium 40 MG/0.4 ML SYRINGE SC SCH (15:04)
--- NOTE | 2019-09-04 15:05 | OP ---
DATE OF PROCEDURE: 09/04/2019 PROCEDURE PERFORMED: Electrophysiology study. PHYSICIANS: 1. Dwayne Quezada MD. 2. Noel Mg MD. REASON FOR PROCEDURE: Mr. Rasmussen is a 58-year-old man with prior history of myocardial infarction, RCA stenting, especially with marked bradycardia, temporary pacemaker placement which was eventually removed with moderate improvement of his bradycardia. He was discharged off beta-favian and persisting marked bradycardia and nonsustained ventricular tachycardia episodes were seen and he was monitored on the home monitor. Subsequently, recurrent nonsustained ventricular tachycardia episodes are seen on his home monitor and also marked bradycardia. He is returning with marked fatigue and tiredness as EKGs revealing sinus bradycardia and episodes of frequent PVCs with bigeminy. He is here for EP study and evaluation of inducibility of ventricular tachycardia as well as sinus node function and PVCs location. DESCRIPTION OF PROCEDURE: The patient received deep sedation by Anesthesia specialist. The right femoral venous area was prepped, draped, and anesthetized with subcutaneous lidocaine. Under ultrasound guidance, a 6-[place] short sheath was introduced. Through this, a decapolar catheter was advanced to the right atrium , right ventricle, His bundle, CS position. Pacing recording and mapping was performed from each location. The following findings were noted. Baseline rhythm was sinus rhythm with frequent PVCs, occasional trigeminy seen. The bigeminal PVCs are left bundle inferior axis in morphology with retention in V1 and V2. The baseline cycle length 734, ERP 71, QRS 114. The RR interval was 900 msec. The HV was 40 msec, AH 170 msec. NV 157 msec, QRS 101 msec, QT 453 msec. The burst atrial pacing reveals AV Wenckebach cycle length was at 420 msec. Antegrade cycle length 420 msec. Retrograde VA cycle length was 610 msec. The AV shamika ERP was 600/320 msec. Ventricular extrastimuli testing was performed with ventricular ERP at 600/260 msec. Additional extrastimuli were also delivered and decremented to the refractory period. Up to 3 ventricular extrastimuli both at [address] Short nonsustained ventricular tachycardia was seen. Mapping of the baseline by doing PVCs were performed, but no early activation is seen in the right ventricle to precede the QRS. Earliest activation was seen at the basal outflow tract area. At the end of the case, we proceeded with a dual-chamber pacemaker implant. The left subclavian vein was checked for patency of the EP catheter. Please see separate report. Hemostasis was eventually obtained with manual pressure. CONCLUSION: 1. Abnormal sinus node function with corrected sinus node recovery time is 671 msec. The frequent bigeminy PVCs were seen, which were somewhat suppressed loop of atrial overdrive pacing. 2. Normal AV shamika and sinus shamika function. 3. Dual AV shamika physiology present. 4. No inducible atrial arrhythmias noted with burst atrial pacing. 5. Only nonsustained ventricular tachycardia seen with ventricular access to my testing. PLAN: Proceed with pacemaker and maximize beta-favian therapy. Job ID: [id number] [facility]
--- NOTE | 2019-09-04 15:23 | RAD ---
EXAM: CHEST ONE VIEW HISTORY: AP study with pacemaker placement. COMPARISON: 09/03/2019 FINDINGS: There has been interval placement of dual lead left subclavian cardiac pacemaking device with RA and RV leads. Cardiac silhouette is magnified by projection. Pulmonary vasculature is within normal limits. Mild elevation right hemidiaphragm is present. Lungs otherwise appear clear. No pneumothorax or pleural effusion is identified. Electronic device again overlies the central mediastinum. No other interval change. IMPRESSION: Interval placement of a dual-lead left subclavian cardiac pacemaking device without evidence of a pne umothorax.
[2019-09-04] MEDS: Sodium Chloride 0.9% 1,000 ML IV SCH (16:28)
[2019-09-04] MEDS ORDERED: Acetaminophen/Codeine 30-300mg Tablet PO PRN ×2 (16:30)
[2019-09-04] MEDS: Metoprolol Tartrate 25 MG TAB PO SCH (17:33)
--- NOTE | 2019-09-04 18:13 | CON ---
DATE OF CONSULTATION: 09/03/2019 REASON FOR CONSULTATION: Bradycardia. HISTORY OF PRESENT ILLNESS: Mr. Francois is a 58-year-old gentleman, who recently presented to [facility] with acute myocardial infarction. He had complete occlusion of the right coronary artery. He underwent successful stent placement. Prior to discharge, he did have episode of nonsustained VT. He was also bradycardic and did have a temporary pacemaker noted just after his initial infarct. This has been removed. Beta-favian therapy could not be started due to bradycardia. His event recorder was placed, it did suggest significant symptomatic bradycardia in addition to nonsustained VT. He was subsequently admitted. PAST MEDICAL HISTORY: As above including acid reflux, previous tobacco abuse. ALLERGIES: NONE. HOME MEDICATIONS: Plavix, aspirin, Prilosec, Lipitor. SOCIAL HISTORY: He is currently . ALLERGIES: NONE. REVIEW OF SYSTEMS: A 10-point review of systems is reviewed as above, otherwise negative. PHYSICAL EXAMINATION: VITAL SIGNS: Blood pressure , temperature 96.8. GENERAL: Patient is a pleasant male, who is in no acute distress. The patient appears their stated age. NEUROLOGIC: The patient is alert and oriented x3 with no focal neurologic deficits. HEENT: Sclerae without icterus. Mouth has moist mucous membranes with normal pallor. NECK: No JVD. Carotid upstroke brisk. No bruits bilaterally. LUNGS: Clear to auscultation with unlabored respirations. BACK: No scoliosis or kyphosis. CARDIAC: Regular rate and rhythm with normal S1 and S2. No S3 or S4 noted. No significant rubs, murmurs, thrills, or gallops noted throughout the precordium. PMI is not displaced. There is no parasternal heave. ABDOMEN: Soft, nontender, nondistended. No peritoneal signs present. No hepatosplenomegaly. No abnormal striae. EXTREMITIES: 2+ femoral and 2+ dorsalis pedis pulses. No cyanosis, clubbing, or edema. SKIN: No gross abnormalities. PERTINENT LABORATORY DATA: Hemoglobin 13.9. Creatinine 0.87. Peak troponin 0.04. IMPRESSION: 1. Symptomatic bradycardia. 2. Nonsustained ventricular tachycardia. RECOMMENDATIONS: The patient has no current symptoms suggesting angina. We will recommend repeating his echo. We will also recommend EP consultation due to bradycardia and nonsustained VT. May need an EP study. Job ID: [id number]
[2019-09-04] MEDS: ceFAZolin 1 GM/D5W 1 GM in Premix Bag 1 BAG IVPB SCH (20:22)
[2019-09-05] MEDS: Sodium Chloride 0.9% 1,000 ML IV SCH (02:21)
[2019-09-05] MEDS: Cephalexin 250 MG CAP PO SCH ×2 (04:49→09:53)
[2019-09-05] MEDS: ceFAZolin 1 GM/D5W 1 GM in Premix Bag 1 BAG IVPB SCH (04:50)
[2019-09-05] MEDS: Famotidine 20 MG TAB PO SCH (08:30)
[2019-09-05] MEDS: Metoprolol Tartrate 25 MG TAB PO SCH (08:30)
[2019-09-05] MEDS: Enoxaparin Sodium 40 MG/0.4 ML SYRINGE SC SCH (08:30)
--- NOTE | 2019-09-05 09:18 | PRG ---
DATE OF SERVICE: 09/05/2019 SUBJECTIVE: Mr. Rasmussen is doing much better. He did undergo EP study yesterday, that was negative for VT. He underwent a pacemaker implantation. His lower rate is set at 75. He is feeling much better this morning. OBJECTIVE: VITAL SIGNS: Blood pressure 125/80, pulse 74, temperature 97.5. LUNGS: Clear to auscultation. HEART: Regular rate and rhythm. ABDOMEN: Soft, nontender, nondistended. EXTREMITIES: No edema. IMPRESSION: 1. Symptomatic bradycardia. 2. Ventricular tachycardia. 3. Recent myocardial infarction. RECOMMENDATIONS: 1. We will continue aspirin and Plavix. 2. Add low-dose metoprolol. He is currently on Lopressor 25 b.i.d. to help suppress PVCs and VT (he could not start this in the past due to bradycardia). 3. Plan is to follow up with Mr. Rasmussen in the next 1 to 2 weeks. No further recommendations. Job ID: [id number]
[2019-09-05 10:49] VITALS: TEMP 96.5
[2019-09-05 13:22] VITALS: BP 132/72
--- NOTE | 2019-09-05 15:36 | DIS ---
DATE OF ADMISSION: 09/03/2019 DATE OF DISCHARGE: 09/05/2019 DISCHARGE DISPOSITION AND FOLLOWUP: The patient discharged home and to follow up with his primary care physician within 7 days, Dr. Noel Mg in 7 days, and Dr. Menchaca in 10 to 14 days. He was seen and examined on the day of discharge. Denies any new complaints. INPATIENT CONSULTS: Cardiology and EP. CLINICAL COURSE: The patient is a very pleasant 58-year-old male with a history of coronary artery disease. He recently had a STEMI, where a drug-eluting stent was placed in his RCA after it was found he had a 100% occlusion. At that time, he had significant bradycardia and also some wide-complex tachycardia. Cardiology attempted to medically manage him at that time. On day of admission, he started feeling dizzy and lightheaded while walking with his . When he checked his pulse, it was as low as 30. In the ER, they found that he was bradycardic and also had slightly elevated troponin. Cardiology and EP were both consulted for him. He underwent EP study that was negative for any V-tach. He had a dual-chamber pacemaker implanted without any issues. The following day, he was able to be discharged as he was asymptomatic and feeling better. FINAL DIAGNOSES: 1. Symptomatic bradycardia. 2. Ventricular tachycardia. 3. Recent myocardial infarction. 4. Status post pacemaker insertion. DISCHARGE MEDICATIONS: New medications: 1. Keflex 500 mg p.o. four times a day x1 week. 2. metoprolol tartrate 25 mg p.o. b.i.d. The patient is to continue; 1. Prilosec 20 mg p.o. daily. 2. Aspirin 81 mg p.o. daily. 3. Lipitor 80 mg p.o. at bedtime. 4. Plavix 75 mg p.o. daily. DISCHARGE INSTRUCTIONS: The patient was instructed over post pacemaker insertion activity restrictions and to follow up with his primary physician, Cardiology, and EP. He was also educated over signs and symptoms of infection. TIME SPENT: Total time coordinating the discharge of this patient was 25 minutes. Job ID: [id number] MTDD
--- NOTE | 2019-09-05 16:31 | PDOC.EP ---
- Subjective Date: 09/05/19 Time: 08:00 Interval History: follow-up for symptomatic bradycardia and wide complex tachycardia. Status post electrophysiology study on 09/04/2019. He was not inducible for sustained ventricular tachycardia. He did not qualify for ICD implant. Due to his symptomatic bradycardia a dual-chamber pacemaker was implanted. today he is feeling well having minor discomfort at the implant site is heart rates have been stable he is eager to discharge home and voices no cardiac concerns or complaints to me this morning. - Review of Systems Constitutional: denies: chills, fever, malaise, sweats, weakness, other Respiratory: denies: cough, dry, hemoptysis, pleuritic pain, shortness of breath , SOB with excertion, sputum, wheezing Cardiology: denies: chest pain, edema, heart racing, light headedness, orthopnea , paroxysmal noc. dyspnea, palpitations, passing out, pleuritic pain, pressure, swelling Gastrointestinal: denies: abdominal pain, constipation, diarrhea, hematochezia, melena, nausea, vomitting - Objective Allergies/Adverse Reactions: Allergies Allergy/AdvReac Type Severity Reaction Status Date / Time No Known Drug Allergies Allergy Verified 08/13/19 06:51 Vital Signs & Weight: Vital Signs Temp Pulse Resp BP Pulse Ox 09/05/19 12:00 75 16 132/72 09/05/19 08:20 96.5 F L 74 16 129/71 96 09/05/19 08:00 96 09/05/19 07:05 99 Weight 205 lb 11.2 oz I/O: I/O 09/04/19 09/05/19 09/06/19 06:59 06:59 06:59 Intake Total 790 1630 Output Total 1500 Balance 790 130 - Physical Exam General: alert & oriented x3, appears well, no apparent distress, speech clear, affect appropriate HEENT: mucus membranes moist, normocephaly Neck: supple neck, midline trachea, no JVD/HJR, no masses, no bruit, no lymphadenopathy, no thromegaly Cardiology: regular rate and rhythm, no murmur, regular rate, regular rhythm, PMI nondisplaced Lungs: clear to auscultation, normal breath sounds, normal exam, no wheeze, rales, rhonchi, no wheezes, no rales, no rhonchi Neurology: cranial nerve 2-12 intact, grossly intact, no lateralizing findings - Labs Result Diagrams: 09/04/19 04:09 09/04/19 04:09 - EKG Interpretation EKG Method: Telemetry EKG shows: Sinus rhythm - Device Device: dual, pacemaker Device Result: [employer] - Assessment/Plan Assessment/Plan: 1. Wide-complex tachycardia, seen on external monitor, 2. Symptomatic bradycardia, sick sinus syndrome. 3. Recent sqw-AY-hsvxeucly myocardial infarction with reperfusion by 100% occluded right coronary artery in late 07/2019. 4. Nonischemic cardiomyopathy with recovered ejection fraction, previously 45% in the setting of a [id number]-HU-[id number] myocardial infarction. 5. Premature ventricular complexes. EP STUDY CONCLUSION: 1. Abnormal sinus node function with corrected sinus node recovery time is 671 msec. The frequent bigeminy PVCs were seen, which were somewhat suppressed loop of atrial overdrive pacing. 2. Normal AV shamika and sinus shamika function. 3. Dual AV shamika physiology present. 4. No inducible atrial arrhythmias noted with burst atrial pacing. 5. Only nonsustained ventricular tachycardia seen with ventricular access to my testing. dual chamber pacemaker was implanted following the EP study given the sinus node dysfunction and symptomatic bradycardia. This will allow for medical management of his nonsustained ventricular tachycardia with beta-favian therapy which has already been initiated. His chest x-ray is stable today as is his pacemaker check. He is cleared for discharge by EP. I will see him back in the clinic for wound and device check in 2 weeks will contact our office with any concerns post EP study and pacemaker implant. He will need to continue the prescribed antibiotics for 7 days upon discharge
--- NOTE | 2019-09-05 17:32 | EKG ---
Test Reason : Blood Pressure : / mmHG Vent. Rate : 073 BPM Atrial Rate : 073 BPM P-R Int : 216 ms QRS Dur : 098 ms QT Int : 438 ms P-R-T Axes : 047 025 -40 degrees QTc Int : 482 ms Atrial-paced rhythm with prolonged AV conduction with frequent ventricular-paced complexes in a patte rn of bigeminy Inferior infarct , age undetermined Abnormal ECG When compared with ECG of 03-SEP-2019 11:41, (Unconfirmed) Electronic ventricular pacemaker has replaced Sinus rhythm Confirmed by ARASH VARGAS, DR. Gaines ([id number]) on 09/05/2019 5:32:35 PM Referred By: [facility] Confirmed By:DR. Liana ANTOINE MD
--- NOTE | 2019-09-07 13:01 | EKG ---
Test Reason : BRADYCARDIA Blood Pressure : / mmHG Vent. Rate : 065 BPM Atrial Rate : 065 BPM P-R Int : 138 ms QRS Dur : 094 ms QT Int : 448 ms P-R-T Axes : 062 014 -37 degrees QTc Int : 465 ms Sinus rhythm with frequent Premature ventricular complexes in a pattern of bigeminy Inferior infarct , age undetermined T wave abnormality, consider lateral ischemia Abnormal ECG Confirmed by ZACH ALVAREZ DO ([id number]), pictures editor PURA ANTHONY ([id number]) on 09/07/2019 1:01:11 PM Referred By: [facility] Confirmed By:ZACH ALVAREZ DO
== END 2019-09-05 13:20 | disposition home or self-care (01) | DRG 242 ==
LOC: ERS 11:31 → ERHOLD 15:47 → OBSVTOIN 15:47 → 2NO 18:11
PROVIDERS: ADMIT Internal Medicine; ATTEND Internal Medicine
PROC: 0JH606Z Insertion of Pacemaker, Dual Chamber into Chest Subcutaneous Tissue and Fascia, Open Approach (ICD-10-PCS; principal; 2019-09-04)
PROC: 02H63JZ Insertion of Pacemaker Lead into Right Atrium, Percutaneous Approach (ICD-10-PCS; 2019-09-04)
PROC: 02HK3JZ Insertion of Pacemaker Lead into Right Ventricle, Percutaneous Approach (ICD-10-PCS; 2019-09-04)
PROC: 4A023FZ Measurement of Cardiac Rhythm, Percutaneous Approach (ICD-10-PCS; 2019-09-04)
PROC: 4A0234Z Measurement of Cardiac Electrical Activity, Percutaneous Approach (ICD-10-PCS; 2019-09-04)
PROC: 02K83ZZ Map Conduction Mechanism, Percutaneous Approach (ICD-10-PCS; 2019-09-04)
DX: I49.5 Sick sinus syndrome (principal); I21.4 Non-ST elevation (NSTEMI) myocardial infarction; I50.22 Chronic systolic (congestive) heart failure; I47.2 Ventricular tachycardia; I42.8 Other cardiomyopathies; I25.10 Atherosclerotic heart disease of native coronary artery without angina pectoris; K21.9 Gastro-esophageal reflux disease without esophagitis; I11.0 Hypertensive heart disease with heart failure; E78.5 Hyperlipidemia, unspecified; Z95.5 Presence of coronary angioplasty implant and graft; Z87.891 Personal history of nicotine dependence; Z79.82 Long term (current) use of aspirin; Z79.02 Long term (current) use of antithrombotics/antiplatelets
CPT/HCPCS: 33208; 36415; 71045; 76942; 80048; 80053; 82550; 82553; 83735; 84484; 85025; 85610; 85730; 93005; 93306; 93620; 93798; C1730; C1769; C1785; C1898; J0171; J0461; J0690; J1580; J1644; J1650; J2001; J2250; J2405; J2704; J3010